=== PATIENT | male | born 1940 | race Caucasian/White ===

== ENCOUNTER 2018-06-22 08:12 | Emergency (ER) | payer MEDICAID | END 2018-06-22 09:57 | disposition home or self-care (01) | LOC: FTE 08:12 | DX: M79.89 Other specified soft tissue disorders (principal) | CPT/HCPCS: 99283; Z7502 ==

== ENCOUNTER 2018-07-14 23:28 | Emergency (ER) | payer MEDICAID | END 2018-07-15 00:47 | disposition home or self-care (01) | LOC: E/R 23:28 | DX: K08.89 Other specified disorders of teeth and supporting structures (principal) | CPT/HCPCS: 99283; Z7502 ==